=== PATIENT | male | born 1985 | race Caucasian/White ===

== ENCOUNTER → 2023-11-15 12:49 | Outpatient (REF) | payer BC, SELFPAY | LOC: RCS 12:49 | PROVIDERS: ATTENDING PHYSICIAN Internal Medicine | DX: R00.2 Palpitations (principal); F41.3 Other mixed anxiety disorders | CPT/HCPCS: 93225; 93226 ==

== ENCOUNTER → 2024-01-26 12:00 | Outpatient (REF) | payer OTHER, SELFPAY | LOC: DHSLP 12:00 | PROVIDERS: ATTENDING PHYSICIAN Internal Medicine; FAMILY PHYSICIAN Internal Medicine | DX: G47.19 Other hypersomnia (principal); G47.8 Other sleep disorders; R06.83 Snoring | CPT/HCPCS: 95800 ==